=== PATIENT | male | born 1990 | race Caucasian/White ===

== ENCOUNTER 2020-09-05 14:05 | Emergency (ER) | payer SELFPAY ==
--- OUTSIDE RECORDS SUMMARY | 2020-09-05 14:08 | XMS REPORT | Continuity of Care Document ---
:1990 Author Organization [facility] t Address [address] [place] [address] Care Team Providers Name Role Phone Dorota Maria Attending Clinician Lab, Fam Pob I Attending Clinician Unavailable Doctor Unassigned, Name Attending Clinician Unavailable Angelita Muñoz MD Attending Clinician Problems This patient has no known problems. Allergies, Adverse Reactions, Alerts This patient has no known allergies or adverse reactions. Medications This patient has no known medications. Procedures This patient has no known procedures. Encounters Start End Encounter Admission Attending Care Care Encounter Source Date/Time Date/Time Type Type Clinicians Facility Department ID 2020-02-21 2020-02-21 Telephone Crow [facility] [id number] 00:00:00 00:00:00 [facility] [id number] Surgical [id number] Specialti [phone] [address] [place] 2020-02-20 2020-02-20 Laboratory Lab, Adc [facility] [id number] 08:40:41 09:00:41 Only Fam Pob I Health [id number] [place] [id number] Professio [id number] nal [address] 2020-02-20 2020-02-20 Letter Doctor BANKS [id number] 00:00:00 00:00:00 (Out) UnassignedSERJIO 350..13.10 [place] [facility] [id number] 2018-09-09 2018-09-09 Urgent ToniARI [id number] 18:02:56 18:54:34 Care [facility] [id number] Surgical [id number] Specialti [id number] [address] [place] 2018-09-09 2018-09-09 Orders Doctor DARREN [id number] 00:00:00 00:00:00 Only Unassigned, INDIALANTIC [id number] [place] [facility] [id number] Results This patient has no known results.
--- NOTE | 2020-09-05 14:55 | RAD REPORT ---
EXAM DESCRIPTION: RAD - Chest Pa And Lat (2 Views) - 09/05/2020 2:47 pm CLINICAL HISTORY: DYSPNEA, COVID positive COMPARISON: None TECHNIQUE: Frontal and lateral views of the chest were obtained. FINDINGS: The lungs are normal volume. Interstitial opacification is present worse in the left lung field. Lateral view shows focal opacification posterior lower chest probably on the left. Findings ar e consistent with patchy bilateral pneumonia. Trachea is midline. Heart size is normal and central vasculature is within normal limits. No pleural effusion or pneumothorax seen. No acute bony findin g noted. No aortic abnormality. IMPRESSION: Patchy bilateral lung parenchymal infiltrates consistent with a mild bilateral COVID-19 pneumonia.
--- NOTE | 2020-09-05 16:29 | EDPHYS ---
Physician Documentation [facility] Name: Javon Welch Age: 30 yrs Sex: Male : 1990 Arrival Date: 09/05/2020 Time: 14:07 Bed 6 Private MD: ED Physician Tom Corbin HPI: 09/05 16:00 This 30 yrs old Male presents to ER via Ambulatory with complaints of Chest cp Pain, Fever, Shortness Of Breath. 09/06 14:58 The patient or guardian reports cough, that is intermittent. Onset: The cp symptoms/episode began/occurred last week. 14:58 Patient reports testing positive for COVID-19 last Tuesday. Patient reports increased cp cough, chest pain with cough, shortness of breath. Historical: - Allergies: 09/05 14:17 Amoxicillin; iw - PMHx: 14:17 None; iw - Immunization history:: Adult Immunizations. - Social history:: Smoking status: Reported history of juuling and/or vaping. ROS: 16:05 Constitutional: Negative for body aches, chills, fever, poor PO intake. cp 16:05 Eyes: Negative for injury, pain, redness, and discharge. cp 16:05 ENT: Negative for drainage from ear(s), ear pain, sore throat, difficulty swallowing, difficulty handling secretions. 16:05 Cardiovascular: Positive for chest pain, with cough, Negative for edema, palpitations. 16:05 Respiratory: Positive for cough, "sounds productive", shortness of breath, on exertion. Negative for wheezing. 16:05 Abdomen/GI: Negative for abdominal pain, nausea, vomiting, and diarrhea. 16:05 Back: Negative for radiated pain. 16:05 Neuro: Negative for altered mental status, headache, syncope, weakness. 16:05 All other systems are negative. Exam: 16:10 Constitutional: The patient appears in no acute distress, alert, awake, cp non-diaphoretic, non-toxic, well developed, well nourished. 16:10 Head/Face: Normocephalic, atraumatic. cp 16:10 Eyes: Periorbital structures: appear normal, Conjunctiva: normal, no exudate, no injection, Sclera: no appreciated abnormality, Lids and lashes: appear normal, bilaterally. 16:10 ENT: External ear(s): are unremarkable, Ear canal(s): are normal, TM's: dullness, bilaterally, Nose: is normal, Mouth: Lips: moist, Oral mucosa: moist, Posterior pharynx: Airway: no evidence of obstruction, patent. 16:10 Neck: ROM/movement: is normal, is supple, without pain, no range of motions limitations, no meningismus. 16:10 Chest/axilla: Inspection: normal, Palpation: is normal, no crepitus, no tenderness. 16:10 Cardiovascular: Rate: normal, Rhythm: regular, Heart sounds: murmur, not appreciated, Edema: is not appreciated, JVD: is not appreciated. 16:10 Respiratory: the patient does not display signs of respiratory distress, Respirations: normal, no use of accessory muscles, no retractions, labored breathing, is not present, Breath sounds: bronchial sounds, that are mild, are heard diffusely, decreased breath sounds, are not appreciated, stridor, is not appreciated, wheezing: is not appreciated. 16:10 Abdomen/GI: Inspection: abdomen appears normal, Palpation: abdomen is soft and non-tender, in all quadrants. 16:10 Back: pain, is absent, ROM is normal. 16:10 Neuro: Orientation: to person, place \\T\\ time. Mentation: is normal. Vital Signs: 14:14 BP 113 / 82; Pulse 101; Resp 18; Temp 97.9(TE); Pulse Ox 96% on R/A; iw 15:56 Pulse 88; Resp 18 S; Temp 98.7; Pulse Ox 96% on R/A; iw MDM: 15:58 Patient medically screened. kellee 16:00 Differential Diagnosis: Bronchitis Influenza Viral Syndrome Pneumonia Other respiratory cp distress, pulmonary edema, less likely pulmonary embolism. 16:28 Data reviewed: vital signs, nurses notes, radiologic studies, plain films. cp 16:28 Test interpretation: by ED physician or midlevel provider: plain radiologic studies. cp Counseling: I had a detailed discussion with the patient and/or guardian regarding: the historical points, exam findings, and any diagnostic results supporting the discharge/admit diagnosis, radiology results, to return to the emergency department if symptoms worsen or persist or if there are any questions or concerns that arise at home. Response to treatment: the patient's symptoms have markedly improved after treatment, and as a result, I will discharge patient. ED course: VSS. No signs of respiratory distress and patient appears non-toxic. Oxygen sats 96% on RA. Will discharge to home for continued monitoring. 09/05 14:19 Order name: [facility] Chest Pa And Lat (2 Views); Complete Time: 16:06 iw Administered Medications: 16:40 Drug: Albuterol HFA Inhaler 2 puffs Route: Inhalation; sv 16:40 Drug: Tessalon Perle (benzonatate) 200 mg Route: PO; sv 16:40 Follow up: Response: Medication administered at discharge. sv Disposition Summary: 09/05/20 16:28 Discharge Ordered Location: Home cp Problem: new cp Symptoms: have improved cp Condition: Stable cp Diagnosis - Other viral pneumonia cp Followup: cp - With: Private Physician - When: 2 - 3 days - Reason: Worsening of condition Discharge Instructions: - Discharge Summary Sheet cp - COVID-19 cp - COVID-19 Frequently Asked Questions cp - Things to Know about the COVID-19 Pandemic - [facility] cp - 10 Things You Can Do to Manage Your COVID-19 Symptoms at Home - [facility] cp - Frequently Asked Questions About COVID-19 Vaccination - [facility] cp - COVID-19: Quarantine vs. Isolation - [facility] cp Forms: - Medication Reconciliation Form cp - Thank You Letter cp - Antibiotic Education cp - Prescription Opioid Use cp Prescriptions: - albuterol sulfate 90 mcg/actuation Inhalation HFA aerosol inhaler - inhale 2 puff by INHALATION route every 4-6 hours; 1 puff; Refills: 0, Product cp Selection Permitted - ivermectin 3 mg Oral tablet - take 4 tablet by ORAL route every other day; 8 tablet; Refills: 0, Product cp Selection Permitted - Tessalon Perles 100 mg Oral Capsule - take 2 capsule by ORAL route every 8 hours As needed; 20 capsule; Refills: 0, cp Product Selection Permitted - Zithromax Z-Andrea 250 mg Oral Tablet - take 1 tablet by ORAL route as directed for 5 days Day 1 - take two (2) tablets cp one time. Day 2, 3, 4 , 5 take one (1) tablet once daily.; 6 tablet; Refills: 0, Product Selection Permitted - Prednisone 20 mg Oral Tablet - take 2 tablets by ORAL route once daily for 5 days then take 1 tablet daily for cp 5 days; 15 tablet; Refills: 0, Product Selection Permitted Addendum: 09/08/2020 06:47 Co-signature as Attending Physician, Tom Corbin MD I agree with the assessment and c escobar plan of care. Signatures: Dispatcher [employer] Anai Rothman, Tom Calzada RN, MD MD cha Williams, Irene, Tom Vasquez RN, SUBHA PA cp
--- NOTE | 2020-09-05 16:29 | ER ---
Nurse's Notes [facility] Name: Javon Welch Age: 30 yrs Sex: Male : 1990 Arrival Date: 09/05/2020 Time: 14:07 Bed 6 Private MD: Diagnosis: Other viral pneumonia Presentation: 09/05 14:14 Chief complaint: Patient states: i tested POSITIVE for COVID last Tuesday, chest pain iw with deep breath, fever increased yesterday. cough with deep breath. my provider wanted me to come up here and get checked out. Coronavirus screen: cough unrelated to allergies, fatigue, shortness of breath, Client presents with at least one sign or symptom that may indicate coronavirus-19. Standard/surgical mask placed on the client. Provider contacted for isolation considerations. Client reports previous positive COVID test result. Date of collection: August 27, 2020. Ebola Screen: Patient denies travel to an Ebola-affected area in the 21 days before illness onset. Initial Sepsis Screen: Does the patient meet any 2 criteria? HR > 90 bpm. No. Patient's initial sepsis screen is negative. Does the patient have a suspected source of infection? No. Patient's initial sepsis screen is negative. Risk Assessment: Do you want to hurt yourself or someone else? Patient reports no desire to harm self or others. Onset of symptoms was September 05, 2020. 14:14 Method Of Arrival: Ambulatory iw 14:14 Acuity: JOHN 3 iw Triage Assessment: 14:18 General: Appears in no apparent distress. slender, well groomed, Behavior is calm, iw cooperative, appropriate for age. Pain: Complains of pain in chest pain with deep breath. Cardiovascular: Reports shortness of breath. Historical: - Allergies: 14:17 Amoxicillin; iw - PMHx: 14:17 None; iw - Immunization history:: Adult Immunizations. - Social history:: Smoking status: Reported history of juuling and/or vaping. Screenin:18 Abuse screen: Denies threats or abuse. Nutritional screening: No deficits noted. iw Tuberculosis screening: No symptoms or risk factors identified. Fall Risk None identified. Assessment: 15:57 General: Appears in no apparent distress. Behavior is calm, cooperative. Pain: iw Complains of pain in chest Pain does not radiate. Respiratory: Reports shortness of breath at rest on exertion Airway is patent Respiratory effort is even, unlabored, Respiratory pattern is regular, symmetrical. 16:40 Reassessment: Patient appears in no apparent distress at this time. No changes from sv previously documented assessment. Patient and/or family updated on plan of care and expected duration. Pain level reassessed. Patient is alert, oriented x 3, equal unlabored respirations, skin warm/dry/pink. Vital Signs: 14:14 BP 113 / 82; Pulse 101; Resp 18; Temp 97.9(TE); Pulse Ox 96% on R/A; iw 15:56 Pulse 88; Resp 18 S; Temp 98.7; Pulse Ox 96% on R/A; iw ED Course: 14:07 Patient arrived in ED. mr 14:17 Triage completed. iw 14:18 Arm band placed on. iw 14:47 XRAY Chest Pa And Lat (2 Views) In Process Unspecified. EDWI 15:56 Tom Bray PA is PHCP. cp 15:56 Tom Corbin MD is Attending Physician. 16:00 Tamiko Varela, GIANNI is Primary Nurse. hb 16:00 Patient has correct armband on for positive identification. Bed in low position. Call light in reach. 16:40 No provider procedures requiring assistance completed. Patient did not have IV access sv during this emergency room visit. Patient maintains SpO2 saturation greater than 95% on room air. Administered Medications: 16:40 Drug: Albuterol HFA Inhaler 2 puffs Route: Inhalation; sv 16:40 Drug: Tessalon Perle (benzonatate) 200 mg Route: PO; sv 16:40 Follow up: Response: Medication administered at discharge. sv Outcome: 16:28 Discharge ordered by . cp 16:40 Discharged to home ambulatory. sv 16:40 Condition: stable 16:40 Discharge instructions given to patient, Instructed on discharge instructions, follow up and referral plans. medication usage, Demonstrated understanding of instructions, follow-up care, medications, Prescriptions given X x5 16:46 Patient left the ED. hb Signatures: Dispatcher [employer] EDWI Anai Judge RN RN YllesZenobia Katerina Harrell RN RN Tom Bray PA PA cp Baxter, Heather RN RN Corrections: (The following items were deleted from the chart) 14:37 14:14 Acuity: JOHN 4 iw iw
[2020-09-05 16:51] VITALS: BP 113/82; O2SAT 96
[2020-09-05 16:53] VITALS: TEMP 98.7
[2020-09-05] MEDS ORDERED: ALBUTEROL INHALER 60 PUFF/8 GM IH ONE (16:54)
[2020-09-05] MEDS ORDERED: BENZONATATE 100 MG CAP PO ONE ×2 (16:54→17:03)
== END 2020-09-05 16:46 | disposition home or self-care (01) ==
LOC: ER 14:05
DX: U07.1 COVID-19 (principal); J12.82 Pneumonia due to coronavirus disease 2019; F17.290 Nicotine dependence, other tobacco product, uncomplicated
CPT/HCPCS: 71046; 99284